=== PATIENT | male | born 1980 | race Caucasian/White ===

== ENCOUNTER 2017-06-26 22:12 | Emergency (ER) | payer SELFPAY, BC | END 2017-06-26 23:46 | disposition left against medical advice (07) | LOC: M ED 22:12 | DX: Z53.21 Procedure and treatment not carried out due to patient leaving prior to being seen by health care provider (principal) ==

== ENCOUNTER 2020-09-03 08:01 | Inpatient (IN) | payer MEDICAID, OTHER, SELFPAY ==
[~2020-09-03] VITALS: Ht 165.1 cm; Wt 109.1 kg
[~2020-09-03 08:01] MED LIST: CLON0.5T2; FLUO20CA22 PO; HYDR-3363; LATU80TA; LISIPOW; METF750T36 PO; RISP-9
[2020-09-03] MEDS ORDERED: LISI20TA35 PO (08:13)
[2020-09-03] MEDS ORDERED: CLON1TAB8 PO (08:13)
[2020-09-03] MEDS ORDERED: LATU40TA PO (08:13)
[2020-09-03] MEDS ORDERED: STEG5TAB PO (08:13)
[2020-09-03] MEDS ORDERED: OXCA300T14 PO (08:13)
[2020-09-03] MEDS ORDERED: ROSU10TA6 PO (08:13)
[2020-09-03] MEDS ORDERED: RISP-8 PO (08:13)
[2020-09-03 08:47] LABS: HEMATOCRIT 47.5 % (42.0-52.0); MEAN CORPUSCULAR HEMOGLOBIN 29.3 pg (27.0-33.0); MEAN CORPUSCULAR HGB CONC 33.7 g/dl (32.0-36.5); MEAN CORPUSCULAR VOLUME 86.8 fl (80.0-96.0); PLATELET COUNT, AUTOMATED 253 10^3/uL (150-450); RED BLOOD COUNT 5.47 10^6/uL (4.30-6.10); WHITE BLOOD COUNT 9.1 10^3/uL (4.0-10.0)
[2020-09-03 09:11] LABS: AMPHETAMINES LEVEL URINE NEGATIVE (NEGATIVE); BARBITURATES URINE NEGATIVE (NEGATIVE); BENZODIAZEPINES URINE NEGATIVE (NEGATIVE); CANNABINOIDS URINE NEGATIVE (NEGATIVE); COCAINE METABOLITE URINE NEGATIVE (NEGATIVE); METHADONE URINE NEGATIVE (NEGATIVE); OPIATES URINE NEGATIVE (NEGATIVE); PHENCYCLIDINE URINE NEGATIVE (NEGATIVE)
[2020-09-03 09:25] LABS: ACETAMINOPHEN LEVEL < 2.0 UG/ML (10.0-30.0); ALBUMIN 4.4 GM/DL (3.2-5.2); ALT/SGPT 39 U/L (12-78); BILIRUBIN,DIRECT 0.1 MG/DL (0.0-0.2); BILIRUBIN,TOTAL 0.5 MG/DL (0.2-1.0); BLOOD UREA NITROGEN 19 MG/DL (7-18); CALCIUM LEVEL 9.5 MG/DL (8.5-10.1); CARBON DIOXIDE LEVEL 22 MEQ/L (21-32); CHLORIDE LEVEL 102 MEQ/L (98-107); CREATININE FOR GFR 1.17 MG/DL (0.70-1.30); ETHYL ALCOHOL (ETHANOL) < 0.003 % (0.000-0.010); GLOMERULAR FILTRATION RATE > 60.0 (>60); GLUCOSE, FASTING 258 MG/DL (70-100); POTASSIUM SERUM 3.8 MEQ/L (3.5-5.1); SALICYLATE LEVEL < 1.7 MG/DL (5.0-30.0); SODIUM LEVEL 135 MEQ/L (136-145); TOTAL PROTEIN 7.4 GM/DL (6.4-8.2)
[2020-09-03 15:46] LABS: RSV AMPLIFICATION NEGATIVE (NEGATIVE)
[2020-09-03] MEDS ORDERED: ACETAMINOPHEN TAB 650MG DOSE (2X325MG) PO PRN (16:05)
[2020-09-03] MEDS ORDERED: traZODone 50 MG TAB PO PRN (16:05)
[2020-09-03] MEDS ORDERED: MAALOX 30 ML SUSP *UDC PO PRN (16:05)
[2020-09-03] MEDS ORDERED: MOM 30ML SUSPENSION UDC PO PRN (16:05)
[2020-09-03] MEDS ORDERED: RISP-9 PO (16:17)
[2020-09-03] MEDS ORDERED: CHOL50002 PO (16:17)
[2020-09-03] MEDS ORDERED: VITMTA PO (16:17)
[2020-09-03 20:15] VITALS: BP 137/85
[2020-09-03] MEDS ORDERED: risperiDONE 2 MG TAB PO SCH (21:50)
[2020-09-03] MEDS ORDERED: hydroCHLOROthiazide 12.5 MG CAPSULE PO SCH (21:50)
[2020-09-03] MEDS: metFORMIN XR 750 MG TAB PO SCH (22:45)
[2020-09-03] MEDS: OXcarbazepine 300 MG TAB PO SCH (22:46)
[2020-09-03] MEDS: clonazePAM 1 MG TAB PO SCH (22:46)
[2020-09-04 06:52] VITALS: BP 148/79
[2020-09-04] MEDS ORDERED: FLUoxetine 20 MG CAP PO SCH (09:00)
[2020-09-04] MEDS: OXcarbazepine 300 MG TAB PO SCH ×2 (09:17→21:05)
[2020-09-04] MEDS: clonazePAM 1 MG TAB PO SCH ×2 (09:17→21:05)
[2020-09-04] MEDS: ROSUVASTATIN 10 MG TAB (CRESTOR) PO SCH (09:17)
[2020-09-04] MEDS: MULTIVITAMINS/MINERALS THERAP 1 TAB PO SCH (09:17)
[2020-09-04] MEDS: VITAMIN D 1,000 INTERNATIONAL UNITS TABLET PO SCH (09:18)
[2020-09-04] MEDS: LURASIDONE HCL 40 MG TAB (LATUDA) PO SCH (09:18)
--- NOTE | 2020-09-04 12:15 | MHHPEPDOC ---
General Date Of Admission: Sep 03, 2020 Legal Status: 9.39 Chief Complaint I been feeling stressed, anxious and depressed also feeling irritable and hatfield, and yesterday was thinking about cutting my wrist ". History of Present Illness HISTORY OF THE PRESENT ILLNESS: Patient is a 40 -year-old , male, who [has a long history of psychiatric treatment as an outpatient for the past 20 years, but reports no previous inpatient treatment. Patient was brought the emergency room by his mother and fianc due to 10 day episode of increasing depression, irritability and recent episode of suicidal thoughts by cutting his wrist with a razor. Patient stated that he hasn't been in treatment for auditory and visual hallucination and mood swings and has been taking combination of medications. He stated that he was doing okay with the ongoing treatment and never had inpatient treatment. 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 He reported that he has been feeling anxious in the morning with the thoughts of going to work and at times feeling emotional and irritable for no reasons with his family. Yesterday morning, he was in the bathroom getting ready for work, but had thoughts of cutting his wrist with a razor and got very scared and asked to his fiance to bring him to the emergency room. He denies any substance abuse issues. He claims that he is been fully compliant with these medications and denies any other stressors. He has been engaged to his fianc for a year and reports good relationship and also her mother is very supportive. He is denying any command hallucination and denies any increased paranoid thoughts.]. Psychiatric Review of Systems Depression (2 or more weeks): depressed mood, difficulty concentrating, suicidal thoughts, other (irritableand hatfield) Carmencita (4 or more days of): denies Psychosis: auditory hallucination, visual hallucination, paranoia PTSD: denies Anxiety: situational anxiety, stressor related anxiety, other (job related anxiety) Past Psychiatric History Previous Psychiatric Diagnosis: .schizophrenia schizoaffective disorder Previous Psychiatric Admissions: .never been hospitalized Suicide Attempts: . No history of any suicide attempt Psychiatric Follow-up: . Been in active treatment at [facility] Psychiatric medications: . Been taking risperidone Latuda Prozac and Trileptal Past Medical History Medical Problems Has diabetes, hypertension and hypercholesterolemia Head Injury: No Seizures: No Hospitalizations: Yes Surgeries: No Family Medical/Psychiatric HX Medical Problems Noncontributory Psychiatric Disorders: No Addiction: No Suicide Attemps/Completions: No Addiction History denies Social History Childhood: . Unremarkable childhood. His father had PTSD and his mother had some anxiety issues, but no major psychiatric history Abuse/Trauma:.no history of abuse Current Living Situation: [Lives with her fiblessing and the her mother]. Education: [Reports that he had a bachelor's degree in psychology from the [employer]]. Employment: [, Working as a Dental Treatment Coordinator]. Social Support: [Family]. Legal: Denies any legal history. Marital: He is engaged to get , no children . Mental Status Examination General Appearance: appears stated age Build: average Demeanor: average Eye Contact: average Activity: average Behavior: cooperative Speech: clear, slow, low in volume Mood: depressed, anxious, irritable Mood Recent episodes of increasing anxiety, irritability and feeling hatfield Thought Process: logical/linear, depressed Thought Content (Delusions): denies SI, HI, AVH, other (used to have visions of ghosts and dark figures and also past. Delusional idea of being abducted by aliens) Thought Content (Other): preoccupied Thought Content (Aggressive): none reported Perception (Hallucinations): auditory, visual, other (. Denies any current active hallucinations) Perception (Other): none reported Cognition (Impairment of): none reported Cognition(Intelligence Est.): average Oriented: Awake, Alert, Oriented times three Diagnoses Schizoaffective disorder A-FIB/CHADSVASC A-FIB History Current/History of A-Fib/PAF?: No Current PO Anticoag Therapy: No Age/Risk Factor Scoring CHADSVASC: CHADSVASC Response (Comments) Value Gender Risk Factor Male 0 Hx of CHF No 0 Hx of HTN Yes 1 Hx of Stroke/TIA/or VTE No 0 Hx of Diabetes Yes 1 Hx of Vascular Disease No 0 Total 2 Treatment Treatment ordered: NONE Assessment Long history of schizoaffective disorder who is in active treatment. He does not appear to be acutely psychotic and denies any command hallucination, but reports increased the depression with the job related stress. He admits to vague suicidal thoughts but denies any clear intent or plan, and able to contract for safety. He needs further stabilization with the medication adjustment and supportive therapy Initial Treatment Plan 1. Patient was admitted on a 9.39 status. 2. Complete history was obtained. 3. With patients permission, family will be contacted and database will be expanded. 4. Patients medication regimen will be reviewed and changed accordingly. 5. Patient will be provided with protected environment. 6. Patient will be treated with individual, group, and milieu therapies. 7. Patient will receive supportive psych-education. 8. Discharge planning will commence immediately. 9. Outpatient follow-up treatment will be strongly recommended. 10. The initial treatment plan will focus initially on: * Depression. * Risk for suicide. ESTIMATED LENGTH OF STAY: 5-7 DAYS. TIME SPENT COUNSELING AND COORDINATING INITIAL CARE: 45 minutes. Tobacco Cessation Screen If Patient is a Smoker Nonsmoker Complete/Results docum. Vital Signs Vital Signs Date Time Temp Pulse Resp B/P (MAP) Pulse Ox O2 Delivery O2 Flow Rate FiO2 09/04/20 06:52 97.6 111 16 148/79 (102) 96 Room Air Laboratory Data 24H Labs Laboratory Tests 2 09/03/20 14:45: Coronavirus (COVID-19)(PCR) NEGATIVE, Influenza Type A (RT-PCR) NEGATIVE, Influenza Type B (RT-PCR) NEGATIVE, Respiratory Syncytial Virus (PCR) NEGATIVE Medications Scheduled Cholecalciferol (Vitamin D3) (Vitamin D3) 125 Mcg Capsule, 5,000 UNITS PO DAILY, (Reported) Clonazepam (Clonazepam) 1 Mg Tablet, 1 MG PO BID, (Reported) Ertugliflozin Pidolate (Steglatro) 5 Mg Tablet, 5 MG PO DAILY, (Reported) Fluoxetine Hcl (Fluoxetine HCl) 20 Mg Cap, 20 MG PO DAILY, (Reported) Lisinopril/Hydrochlorothiazide (Lisinopril-Hctz 20-12.5 mg Tab) 1 Each Tablet, 1 TAB PO QHS, (Reported) Lurasidone Hydrochloride (Latuda) 40 Mg Tablet, 40 MG PO DAILY, (Reported) Metformin HCl (Metformin HCl ER) 750 Mg Tab, 750 MG PO BID, (Reported) Multivitamins (Thera M Plus Tablet) 1 Each Tablet, 1 TAB PO DAILY, (Reported) Oxcarbazepine (Oxcarbazepine) 300 Mg Tablet, 600 MG PO BID, (Reported) Risperidone (Risperidone) 2 Mg Tablet, 2 MG PO QHS, (Reported) Rosuvastatin Calcium (Rosuvastatin Calcium) 10 Mg Tablet, 10 MG PO DAILY, ( Reported) Allergies Coded Allergies: Sulfa (Sulfonamide Antibiotics) (Verified Allergy, Intermediate, HIVES, 09/03/20) PLACIDO MAHMOOD M.D. Sep 04, 2020 12:14
--- NOTE | 2020-09-04 12:54 | HPEPDOC ---
General Date of Admission Sep 03, 2020 at 16:03 Date of Service: Sep 04, 2020 Attending Physician: JAMES HERNANDEZ MD Chief Complaint The patient is a 40-year-old male admitted with a reason for visit of Depressive Do Nos. History of Present Illness 40 yo M with a history of DM, HTN, HLD, obesity, schizophrenia who presented to the ED with worsening depression with suicidal thoughts for days with a report of some auditory hallucinations though he does not remember their command at this time. He reports recent stress from his current job and has a self reported history of schizophrenia with no prior history of suicidal attempts. He denies recent physical illness, fever, chills, nausea, emesis, abdominal pain, chest schulte, palpitations. He is now admitted to the [facility] for evaluation and treatment and medicine is consulted for medical evaluation. Home Medications Scheduled Cholecalciferol (Vitamin D3) (Vitamin D3) 125 Mcg Capsule, 5,000 UNITS PO DAILY, (Reported) Clonazepam (Clonazepam) 1 Mg Tablet, 1 MG PO BID, (Reported) Ertugliflozin Pidolate (Steglatro) 5 Mg Tablet, 5 MG PO DAILY, (Reported) Fluoxetine Hcl (Fluoxetine HCl) 20 Mg Cap, 20 MG PO DAILY, (Reported) Lisinopril/Hydrochlorothiazide (Lisinopril-Hctz 20-12.5 mg Tab) 1 Each Tablet, 1 TAB PO QHS, (Reported) Lurasidone Hydrochloride (Latuda) 40 Mg Tablet, 40 MG PO DAILY, (Reported) Metformin HCl (Metformin HCl ER) 750 Mg Tab, 750 MG PO BID, (Reported) Multivitamins (Thera M Plus Tablet) 1 Each Tablet, 1 TAB PO DAILY, (Reported) Oxcarbazepine (Oxcarbazepine) 300 Mg Tablet, 600 MG PO BID, (Reported) Risperidone (Risperidone) 2 Mg Tablet, 2 MG PO QHS, (Reported) Rosuvastatin Calcium (Rosuvastatin Calcium) 10 Mg Tablet, 10 MG PO DAILY, (Reported) Allergies Coded Allergies: Sulfa (Sulfonamide Antibiotics) (Verified Allergy, Intermediate, HIVES, 09/03/20) Past Medical History Medical History DM HTN HLD Vit D deficiency Schizophrenia Surgical History None Family History Significant Family History: No pertinent family hx Social History * Smoker: Denies Alcohol: Denies Drugs: denies Recent Travel/Sick Contacts: Denies: Recent travel, Recent sick contacts Psychosocial History: Schizophrenia, Suicidal thoughts A-FIB/CHADSVASC A-FIB History Current/History of A-Fib/PAF?: No Current PO Anticoag Therapy: No Age/Risk Factor Scoring CHADSVASC: CHADSVASC Response (Comments) Value Age Risk Factor Age < 65 years old 0 Gender Risk Factor Male 0 Hx of CHF No 0 Hx of HTN Yes 1 Hx of Stroke/TIA/or VTE No 0 Hx of Diabetes Yes 1 Hx of Vascular Disease No 0 Total 2 Treatment Treatment ordered: NONE Reason Anticoagulant not given: Not indicated/[id number] Review of Systems Constitutional: Denies: Chills, Fever, Night Sweats Eyes: Denies: Pain, Vision change ENT: Denies: Head Aches, Ear Pain, Dysphagia Skin: Denies: Rash, Lesions, Breakdown Pulmonary: Denies: Dyspnea, Cough Cardiovascular: Denies: Chest Pain, Palpitations, Orthopnea, Paroxysmal Noc. Dyspnea, Lt Headedness Gastrointestinal: Denies: Nausea, Vomiting, Abdominal Pain, Diarrhea Genitourinary: Denies: Dysuria, Frequency, Incontinence, Retention Hematologic: Denies: Bruising, Bleeding Excessively Endocrine: Denies: Polydipsia, Polyphagia, Polyuria, Heat Intolerance, Cold Intolerance, Other Endocrine Sx Musculoskeletal: Denies: Neck Pain, Back Pain, Joint Pain, Muscle Pain, Spasms Neurological: Denies: Weakness, Numbness, Change in speech, Confusion Psych: Reports: Anxiety, Depression, Thoughts of Self Harm Physical Examination General Exam: Positive: Alert, No Acute Distress Eye Exam: Positive: PERRLA, Conjunctiva & lids normal, EOMI; Negative: Sclera icteric ENT Exam: Positive: Atraumatic, Mucous membr. moist/pink, Pharynx Normal Neck Exam: Positive: Supple; Negative: JVD, thyromegaly Chest Exam: Positive: Clear to auscultation, Normal air movement Heart Exam: Positive: Rate Normal, Regular Rhythm, Normal S1, Normal S2; Negative: Murmurs, Rubs Abdomen Exam: Positive: Normal bowel sounds, Soft; Negative: Tenderness, Hepatospenomegaly Extremity Exam: Positive: Normal pulses; Negative: Clubbing, Cyanosis, Edema Skin Exam: Positive: Nl turgor and temperature; Negative: Breakdown, Lesion Neuro Exam: Positive: Normal Gait, Normal Speech, Cranial Nerves 3-12 NL, Reflexes 2+ Psych Exam: Positive: Oriented x 3 Vital Signs Vital Signs Date Time Temp Pulse Resp B/P (MAP) Pulse Ox O2 Delivery O2 Flow Rate FiO2 09/04/20 12:04 Room Air 09/04/20 06:52 97.6 111 16 148/79 (102) 96 Laboratory Data Labs 24H Laboratory Tests 2 09/03/20 14:45: Coronavirus (COVID-19)(PCR) NEGATIVE, Influenza Type A (RT-PCR) NEGATIVE, Influenza Type B (RT-PCR) NEGATIVE, Respiratory Syncytial Virus (PCR) NEGATIVE Assessment/Plan 40 yo M with a history for DM, HTN, HLD and self reported history of schizophrenia who is admitted to the [facility] for worsening depression and suicidal ideation. Depression with suicidal ideation, w/ a history of schizophrenia: -Plan per primary psych team DM: -continue metformin -SGLT2 --> ordered as patient's own med and patient will have his fiance bring the medication. -consistent carb diet HTN: -continue QHS lisinopril 20mg -change 12.5 HCTZ to daily from QHS as he is reporting nocturia HLD: -continue home rosuvastatin 10mg QD DVT ppx: ambulatory, low risk. Plan / VTE VTE Prophylaxis Ordered?: No VTE Exclusion Mechanical Proph: Absent Response to Tx VTE Exclusion Pharmacological: At Low Risk for VTE JAMES HERNANDEZ MD Sep 04, 2020 12:26
[2020-09-04] MEDS: hydroCHLOROthiazide 12.5 MG CAPSULE PO SCH (14:03)
[2020-09-04] MEDS: metFORMIN XR 750 MG TAB PO SCH ×2 (14:03→21:05)
[2020-09-04 18:44] VITALS: BP 148/90
[2020-09-04] MEDS: risperiDONE 3 MG TAB PO SCH (21:06)
[2020-09-05] MEDS ORDERED: UNRESOLVED PATIENT OWN MED ORDER XX SCH (00:01)
[2020-09-05 06:29] VITALS: BP 130/58
[2020-09-05] MEDS: ERTUGLIFLOZIN PO SCH (08:57)
[2020-09-05] MEDS: VITAMIN D 1,000 INTERNATIONAL UNITS TABLET PO SCH (08:58)
[2020-09-05] MEDS: hydroCHLOROthiazide 12.5 MG CAPSULE PO SCH (08:58)
[2020-09-05] MEDS: clonazePAM 1 MG TAB PO SCH ×2 (08:58→20:38)
[2020-09-05] MEDS: FLUoxetine 10 MG CAP PO SCH (08:59)
[2020-09-05] MEDS: metFORMIN XR 750 MG TAB PO SCH ×2 (08:59→20:39)
[2020-09-05] MEDS: ROSUVASTATIN 10 MG TAB (CRESTOR) PO SCH (09:00)
[2020-09-05] MEDS: MULTIVITAMINS/MINERALS THERAP 1 TAB PO SCH (09:00)
[2020-09-05] MEDS: OXcarbazepine 300 MG TAB PO SCH ×2 (09:00→20:39)
[2020-09-05] MEDS: LURASIDONE HCL 40 MG TAB (LATUDA) PO SCH (09:01)
--- NOTE | 2020-09-05 10:17 | MHIPNPDOC ---
[facility] Progress Note Progress Note DATE OF SERVICE: 09/05/20 The patient is cooperated with the medication change and took a increase the risperidone and the Prozac and reports no complain of side effect. He is asking if he needs more to stabilize, but he was told that is already taking Trileptal which is a good mood stabilizer and he accepts that. He has no new complaints and reports that he is not as anxious and he is not as depressed about his situation and denies any more suicidal plan or intent and indicates that he would like to go home soon. He is however showing no significant change in his mental status appears to be quite preoccupied and withdrawn and was explained that he needs further stabilization. HISTORY: . VITAL SIGNS: See below. NEW TEST RESULTS: . CURRENT MEDICATIONS: See below. MENTAL STATUS EXAMINATION: Patient is a 40-year old male, who is , cooperative. Speech: Is , coherent and relevant. Language skills are good. Thought processes including: Relevant answers. Thought content: , Somewhat minimizing and evasive but reports that he is not as preoccupied with his job stress. Abstract reasoning, and computation: fair. Description of associations: Organize. Description of abnormal or psychotic thoughts: Denies any active or hallucination and denies any active suicidal thoughts. Judgment: fair. Insight: [ fair. Orientation: Oriented . Recent and remote memory: Unimpaired. Attention span and concentration: . Language: . Fund of knowledge: . Mood: , Depressed and preoccupied. Affect: , Appropriate. DIAGNOSES: 1. . Schizoaffective disorder 2. . 3. . ASSESSMENT: Cooperating with the medicine and denies any active suicidal thoughts MANAGEMENT PLAN: . stabilization with his medication changes and supportive therapy. TIME SPENT: 20 minutes. Vital Signs Vital Signs Date Time Temp Pulse Resp B/P (MAP) Pulse Ox O2 Delivery O2 Flow Rate FiO2 09/05/20 06:29 97.5 93 18 130/58 (82) 100 Room Air Current Medications Current Medications Medications (Trade) Dose Ordered Sig/Ria Route PRN Reason Start Time Stop Time Status Last Admin Dose Admin Acetaminophen (Tylenol Tab) 650 mg Q6HP PRN PO HEADACHE or MILD DISCOMFORT 09/03/20 16:05 Al Hydrox/Mg Hydrox/Simethicone (Mylanta) 30 ml Q4HP PRN PO HEARTBURN/INDIGESTION 09/03/20 16:05 Clonazepam (KlonoPIN) 1 mg BID PO 09/03/20 21:50 09/05/20 08:58 Fluoxetine HCl (PROzac) 20 mg DAILY PO 09/04/20 09:00 09/04/20 11:46 DC 09/04/20 09:17 Fluoxetine HCl (PROzac) 30 mg DAILY PO 09/05/20 09:00 09/05/20 08:59 Home Med (Med Rec Complete!) ASDIRECTED XX 09/03/20 16:20 09/03/20 16:20 DC Hydrochlorothiazide (Hydrodiuril) 12.5 mg DAILY PO 09/04/20 09:00 09/05/20 08:58 Hydrochlorothiazide (Hydrodiuril) 12.5 mg QHS PO 09/03/20 21:50 09/04/20 12:52 DC Lisinopril (Prinivil) 20 mg QHS PO 09/03/20 21:50 09/04/20 21:05 Lurasidone HCl (Latuda) 40 mg DAILY PO 09/04/20 09:00 09/05/20 09:01 Magnesium Hydroxide (Milk Of Magnesia) 30 ml DAILYPRN PRN PO CONSTIPATION 09/03/20 16:05 Metformin HCl (Glucophage Xr) 750 mg BID PO 09/03/20 21:50 09/05/20 08:59 Miscellaneous (Unresolved Patient Own Med Order) SEE LABEL COMMENTS UNRESOLVED XX 09/05/20 00:01 09/04/20 20:37 DC Multivitamins (Theragram-M) 1 tab DAILY PO 09/04/20 09:00 09/05/20 09:00 Oxcarbazepine (Trileptal) 600 mg BID PO 09/03/20 21:50 09/05/20 09:00 Patient Own Medication (Patient'S Own Med) ERTUGLIFLOZIN 5MG TABLET (Stegla... DAILY PO 09/05/20 09:00 09/05/20 08:57 Risperidone (RisperDAL) 2 mg QHS PO 09/03/20 21:50 09/04/20 11:46 DC 09/03/20 22:46 Risperidone (RisperDAL) 3 mg QHS PO 09/04/20 21:00 09/04/20 21:06 Rosuvastatin Calcium (Crestor) 10 mg DAILY PO 09/04/20 09:00 09/05/20 09:00 Trazodone HCl (Desyrel) 50 mg QHSP PRN PO INSOMNIA 09/03/20 16:05 Vitamin D (Vitamin D) 5,000 units DAILY PO 09/04/20 09:00 09/05/20 08:58 Allergies Coded Allergies: Sulfa (Sulfonamide Antibiotics) (Verified Allergy, Intermediate, HIVES, 09/03/20) PLACIDO MAHMOOD M.D. Sep 05, 2020 10:17
[2020-09-05 17:45] VITALS: BP 144/81
[2020-09-05] MEDS: risperiDONE 3 MG TAB PO SCH (20:39)
[2020-09-06 06:35] VITALS: BP 129/56
[2020-09-06] MEDS: ERTUGLIFLOZIN PO SCH (08:09)
[2020-09-06] MEDS: MULTIVITAMINS/MINERALS THERAP 1 TAB PO SCH (08:09)
[2020-09-06] MEDS: VITAMIN D 1,000 INTERNATIONAL UNITS TABLET PO SCH (08:10)
[2020-09-06] MEDS: hydroCHLOROthiazide 12.5 MG CAPSULE PO SCH (08:10)
[2020-09-06] MEDS: LURASIDONE HCL 40 MG TAB (LATUDA) PO SCH (08:10)
[2020-09-06] MEDS: metFORMIN XR 750 MG TAB PO SCH ×2 (08:10→21:26)
[2020-09-06] MEDS: OXcarbazepine 300 MG TAB PO SCH ×2 (08:10→21:26)
[2020-09-06] MEDS: ROSUVASTATIN 10 MG TAB (CRESTOR) PO SCH (08:10)
[2020-09-06] MEDS: clonazePAM 1 MG TAB PO SCH ×2 (08:10→21:26)
[2020-09-06] MEDS: FLUoxetine 10 MG CAP PO SCH (08:10)
--- NOTE | 2020-09-06 11:50 | MHIPNPDOC ---
[facility] Progress Note Progress Note DATE OF SERVICE: 09/06/20 The patient is tolerating increased the Prozac and risperidone without any complaint of side effect. He is a little anxious and stated that he misses his fiance and will like to go home soon, but admits that he has been getting increasingly stressed with his new job and was having serious suicidal thoughts. He is currently denying any more, intent or plan and is willing to cooperate with the treatment. She appears somewhat regressed and childish but his behavior is in control and denies any command hallucination and willing to cooperate with treatment. HISTORY: . VITAL SIGNS: See below. NEW TEST RESULTS: . CURRENT MEDICATIONS: See below. MENTAL STATUS EXAMINATION: Patient is a 40-year old male, who is moderately anxious . Speech: Is rational coherent, but not productive . Language skills are fair. Thought processes including: Relevant. Thought content: , Not very productive, but admits to increasing difficulty with the new job. Abstract reasoning, and computation: fair. Description of associations: , Organized. Description of abnormal or psychotic thoughts: Denies any command hallucination or delusional thinking. Judgment: poor. Insight: fair.. Orientation: , Oriented, unimpaired. Recent and remote memory: . Attention span and concentration: . Language: . Fund of knowledge: . Mood: , Anxious, depressed. Affect: Somewhat blunted. DIAGNOSES: 1. . Schizoaffective disorder 2. . 3. . ASSESSMENT: Remains moderately anxious and feeling unsafe but denies any active suicidal thoughts MANAGEMENT PLAN: Continued supportive therapy and medications. TIME SPENT: 20 minutes. Vital Signs Vital Signs Date Time Temp Pulse Resp B/P (MAP) Pulse Ox O2 Delivery O2 Flow Rate FiO2 09/06/20 06:35 96.8 77 18 129/56 (80) 95 Room Air Current Medications Current Medications Medications (Trade) Dose Ordered Sig/Ria Route PRN Reason Start Time Stop Time Status Last Admin Dose Admin Acetaminophen (Tylenol Tab) 650 mg Q6HP PRN PO HEADACHE or MILD DISCOMFORT 09/03/20 16:05 Al Hydrox/Mg Hydrox/Simethicone (Mylanta) 30 ml Q4HP PRN PO HEARTBURN/INDIGESTION 09/03/20 16:05 Clonazepam (KlonoPIN) 1 mg BID PO 09/03/20 21:50 09/06/20 08:10 Fluoxetine HCl (PROzac) 20 mg DAILY PO 09/04/20 09:00 09/04/20 11:46 DC 09/04/20 09:17 Fluoxetine HCl (PROzac) 30 mg DAILY PO 09/05/20 09:00 09/06/20 08:10 Home Med (Med Rec Complete!) ASDIRECTED XX 09/03/20 16:20 09/03/20 16:20 DC Hydrochlorothiazide (Hydrodiuril) 12.5 mg DAILY PO 09/04/20 09:00 09/06/20 08:10 Hydrochlorothiazide (Hydrodiuril) 12.5 mg QHS PO 09/03/20 21:50 09/04/20 12:52 DC Lisinopril (Prinivil) 20 mg QHS PO 09/03/20 21:50 09/05/20 20:39 Lurasidone HCl (Latuda) 40 mg DAILY PO 09/04/20 09:00 09/06/20 08:10 Magnesium Hydroxide (Milk Of Magnesia) 30 ml DAILYPRN PRN PO CONSTIPATION 09/03/20 16:05 Metformin HCl (Glucophage Xr) 750 mg BID PO 09/03/20 21:50 09/06/20 08:10 Miscellaneous (Unresolved Patient Own Med Order) SEE LABEL COMMENTS UNRESOLVED XX 09/05/20 00:01 09/04/20 20:37 DC Multivitamins (Theragram-M) 1 tab DAILY PO 09/04/20 09:00 09/06/20 08:09 Oxcarbazepine (Trileptal) 600 mg BID PO 09/03/20 21:50 09/06/20 08:10 Patient Own Medication (Patient'S Own Med) ERTUGLIFLOZIN 5MG TABLET (Stegla... DAILY PO 09/05/20 09:00 09/06/20 08:09 Risperidone (RisperDAL) 2 mg QHS PO 09/03/20 21:50 09/04/20 11:46 DC 09/03/20 22:46 Risperidone (RisperDAL) 3 mg QHS PO 09/04/20 21:00 09/05/20 20:39 Rosuvastatin Calcium (Crestor) 10 mg DAILY PO 09/04/20 09:00 09/06/20 08:10 Trazodone HCl (Desyrel) 50 mg QHSP PRN PO INSOMNIA 09/03/20 16:05 Vitamin D (Vitamin D) 5,000 units DAILY PO 09/04/20 09:00 09/06/20 08:10 Allergies Coded Allergies: Sulfa (Sulfonamide Antibiotics) (Verified Allergy, Intermediate, HIVES, 09/03/20) PLACIDO MAHMOOD M.D. Sep 06, 2020 11:50
[2020-09-06 18:04] VITALS: BP 147/86
[2020-09-06] MEDS: risperiDONE 3 MG TAB PO SCH (21:26)
[2020-09-07 06:55] VITALS: BP 119/66
[2020-09-07] MEDS: ERTUGLIFLOZIN PO SCH (09:16)
[2020-09-07] MEDS: hydroCHLOROthiazide 12.5 MG CAPSULE PO SCH (09:16)
[2020-09-07] MEDS: metFORMIN XR 750 MG TAB PO SCH ×2 (09:16→20:57)
[2020-09-07] MEDS: ROSUVASTATIN 10 MG TAB (CRESTOR) PO SCH (09:16)
[2020-09-07] MEDS: OXcarbazepine 300 MG TAB PO SCH ×2 (09:17→20:57)
[2020-09-07] MEDS: FLUoxetine 10 MG CAP PO SCH (09:17)
[2020-09-07] MEDS: clonazePAM 1 MG TAB PO SCH ×2 (09:17→20:57)
[2020-09-07] MEDS: MULTIVITAMINS/MINERALS THERAP 1 TAB PO SCH (09:17)
[2020-09-07] MEDS: VITAMIN D 1,000 INTERNATIONAL UNITS TABLET PO SCH (09:17)
[2020-09-07] MEDS: LURASIDONE HCL 40 MG TAB (LATUDA) PO SCH (09:17)
--- NOTE | 2020-09-07 14:46 | MHIPNPDOC ---
[facility] Progress Note Progress Note DATE OF SERVICE: 09/07/20 HISTORY: As per Dr. Orellana: "The patient is tolerating increased the Prozac and risperidone without any complaint of side effect. He is a little anxious and stated that he misses his fiance and will like to go home soon, but admits that he has been getting increasingly stressed with his new job and was having serious suicidal thoughts. He is currently denying any more, intent or plan and is willing to cooperate with the treatment. She appears somewhat regressed and childish but his behavior is in control and denies any command hallucination and willing to cooperate with treatment." VITAL SIGNS: See below. NEW TEST RESULTS: . CURRENT MEDICATIONS: See below. MENTAL STATUS EXAMINATION: Patient is a 40-year old male, who presents to the office wearing hospital scrubs, he is calm, cooperative, obese, with good eye contact Speech: Is normal in r/t/v, not very spontaneous. Language skills are fair. Thought processes including: Relevant. Thought content: Denies feeling suicidal or homicidal, denies paranoid thoughts, denies grandiose or bizarre thoughts today but still reports anxious thoughts. Abstract reasoning, and computation: fair. Description of associations: Not loose. Description of abnormal or psychotic thoughts: Denies TAV hallucinations, denies thought delusions, he is not responding to internal stimuli Judgment: improving. Insight: fair. Orientation: Oriented, unimpaired. Recent and remote memory: fair Attention span and concentration: not easily distracted. Language: no gross abnormalities observed. Fund of knowledge: average Mood: Anxious Affect: A little restricted DIAGNOSES: 1. . Schizoaffective disorder ASSESSMENT: Patient reports feeling anxious, mostly in the mornings because at times the Unit can be noisy as a result of peers been agitated. Other than that he reports an improvement since he was admitted, he feels less anxious, less depressed, he denies SI/HI, he's not in danger to self or others at this time. Ordered lipid profile and a repeat of his TSH because this last one was elevated upon admission. MANAGEMENT PLAN: Continued supportive therapy and medications. TIME SPENT: 20 minutes. Vital Signs Vital Signs Date Time Temp Pulse Resp B/P (MAP) Pulse Ox O2 Delivery O2 Flow Rate FiO2 09/07/20 08:12 Room Air 09/07/20 06:55 98.0 84 20 119/66 (83) 98 Laboratory Data 24H Labs Laboratory Tests 2 09/06/20 21:31: Bedside Glucose (Misc Panel) 141H Current Medications Current Medications Medications (Trade) Dose Ordered Sig/Ria Route PRN Reason Start Time Stop Time Status Last Admin Dose Admin Acetaminophen (Tylenol Tab) 650 mg Q6HP PRN PO HEADACHE or MILD DISCOMFORT 09/03/20 16:05 Al Hydrox/Mg Hydrox/Simethicone (Mylanta) 30 ml Q4HP PRN PO HEARTBURN/INDIGESTION 09/03/20 16:05 09/06/20 14:55 Clonazepam (KlonoPIN) 1 mg BID PO 09/03/20 21:50 09/07/20 09:17 Fluoxetine HCl (PROzac) 20 mg DAILY PO 09/04/20 09:00 09/04/20 11:46 DC 09/04/20 09:17 Fluoxetine HCl (PROzac) 30 mg DAILY PO 09/05/20 09:00 09/07/20 09:17 Home Med (Med Rec Complete!) ASDIRECTED XX 09/03/20 16:20 09/03/20 16:20 DC Hydrochlorothiazide (Hydrodiuril) 12.5 mg DAILY PO 09/04/20 09:00 09/07/20 09:16 Hydrochlorothiazide (Hydrodiuril) 12.5 mg QHS PO 09/03/20 21:50 09/04/20 12:52 DC Lisinopril (Prinivil) 20 mg QHS PO 09/03/20 21:50 09/06/20 21:26 Lurasidone HCl (Latuda) 40 mg DAILY PO 09/04/20 09:00 09/07/20 09:17 Magnesium Hydroxide (Milk Of Magnesia) 30 ml DAILYPRN PRN PO CONSTIPATION 09/03/20 16:05 Metformin HCl (Glucophage Xr) 750 mg BID PO 09/03/20 21:50 09/07/20 09:16 Miscellaneous (Unresolved Patient Own Med Order) SEE LABEL COMMENTS UNRESOLVED XX 09/05/20 00:01 09/04/20 20:37 DC Multivitamins (Theragram-M) 1 tab DAILY PO 09/04/20 09:00 09/07/20 09:17 Oxcarbazepine (Trileptal) 600 mg BID PO 09/03/20 21:50 09/07/20 09:17 Patient Own Medication (Patient'S Own Med) ERTUGLIFLOZIN 5MG TABLET (Stegla... DAILY PO 09/05/20 09:00 09/07/20 09:16 Risperidone (RisperDAL) 2 mg QHS PO 09/03/20 21:50 09/04/20 11:46 DC 09/03/20 22:46 Risperidone (RisperDAL) 3 mg QHS PO 09/04/20 21:00 09/06/20 21:26 Rosuvastatin Calcium (Crestor) 10 mg DAILY PO 09/04/20 09:00 09/07/20 09:16 Trazodone HCl (Desyrel) 50 mg QHSP PRN PO INSOMNIA 09/03/20 16:05 Vitamin D (Vitamin D) 5,000 units DAILY PO 09/04/20 09:00 09/07/20 09:17 Allergies Coded Allergies: Sulfa (Sulfonamide Antibiotics) (Verified Allergy, Intermediate, HIVES, 09/03/20) CARI GODFREY MD Sep 07, 2020 14:35
[2020-09-07 16:51] VITALS: BP 143/68
[2020-09-07] MEDS: risperiDONE 3 MG TAB PO SCH (20:57)
[2020-09-08 06:55] VITALS: BP 124/60
[2020-09-08 07:55] LABS: CHOLESTEROL RISK RATIO 4.828 (<5); THYROID STIMULATING HORMONE 4.43 uIU/ML (0.358-3.740)
[2020-09-08] MEDS: hydroCHLOROthiazide 12.5 MG CAPSULE PO SCH (09:19)
[2020-09-08] MEDS: OXcarbazepine 300 MG TAB PO SCH ×2 (09:20→20:48)
[2020-09-08] MEDS: clonazePAM 1 MG TAB PO SCH ×2 (09:20→20:49)
[2020-09-08] MEDS: ROSUVASTATIN 10 MG TAB (CRESTOR) PO SCH (09:21)
[2020-09-08] MEDS: LURASIDONE HCL 40 MG TAB (LATUDA) PO SCH (09:21)
[2020-09-08] MEDS: metFORMIN XR 750 MG TAB PO SCH ×2 (09:21→20:49)
[2020-09-08] MEDS: MULTIVITAMINS/MINERALS THERAP 1 TAB PO SCH (09:22)
[2020-09-08] MEDS: VITAMIN D 1,000 INTERNATIONAL UNITS TABLET PO SCH (09:22)
[2020-09-08] MEDS: FLUoxetine 10 MG CAP PO SCH (09:22)
[2020-09-08] MEDS: ERTUGLIFLOZIN PO SCH (09:23)
[2020-09-08] MEDS: risperiDONE 3 MG TAB PO SCH (20:49)
[2020-09-09] MEDS: MULTIVITAMINS/MINERALS THERAP 1 TAB PO SCH (08:27)
[2020-09-09] MEDS: FLUoxetine 10 MG CAP PO SCH (08:27)
[2020-09-09] MEDS: clonazePAM 1 MG TAB PO SCH ×2 (08:27→20:47)
[2020-09-09] MEDS: metFORMIN XR 750 MG TAB PO SCH ×2 (08:27→20:48)
[2020-09-09] MEDS: LURASIDONE HCL 40 MG TAB (LATUDA) PO SCH (08:28)
[2020-09-09] MEDS: ERTUGLIFLOZIN PO SCH (08:28)
[2020-09-09] MEDS: hydroCHLOROthiazide 12.5 MG CAPSULE PO SCH (08:28)
[2020-09-09] MEDS: OXcarbazepine 300 MG TAB PO SCH ×2 (08:30→20:47)
[2020-09-09] MEDS: VITAMIN D 1,000 INTERNATIONAL UNITS TABLET PO SCH (08:30)
[2020-09-09] MEDS: ROSUVASTATIN 10 MG TAB (CRESTOR) PO SCH (08:30)
--- NOTE | 2020-09-09 09:37 | MHIPNPDOC ---
[facility] Progress Note Progress Note DATE OF SERVICE: 09/09/20 The patient reports that that he has been feeling much better and is not getting any suicidal thoughts anymore. He stated that he was not taking care of himself after he started the new job and was not sleeping enough and probably overextended himself, which could have triggered this episode. He is not feeling as anxious or depressed and not getting any suicidal thoughts and his sleep has improved and not having much anxiety symptoms. He misses his fiance and has been talking to on the phone and wants to be discharged soon. HISTORY: . VITAL SIGNS: See below. NEW TEST RESULTS: . CURRENT MEDICATIONS: See below. MENTAL STATUS EXAMINATION: Patient is a 40-year old male, who is , pleasant and cooperative. Speech: Is rational, coherent. Language skills are good. Thought processes including: Relevant. Thought content: Denies any suicidal thoughts. Abstract reasoning, and computation: Good. Description of associations: Organized . Description of abnormal or psychotic thoughts: Denies any hallucination or paranoia . Judgment: fair. Insight: fair. Orientation: , Well oriented. Recent and remote memory: Unimpaired. Attention span and concentration: . Language: . Fund of knowledge: . Mood: Euthymic. Affect: , Appropriate. DIAGNOSES: 1. . Schizoaffective disorder 2. . 3. . ASSESSMENT:Showing improved mood and maintaining stable behavior MANAGEMENT PLAN: Continue with his current medicine. Possible discharge tomorrow. TIME SPENT: 20 minutes. Vital Signs Vital Signs Date Time Temp Pulse Resp B/P (MAP) Pulse Ox O2 Delivery O2 Flow Rate FiO2 09/08/20 08:25 Room Air 09/08/20 06:55 98.5 90 20 124/60 (81) 95 Current Medications Current Medications Medications (Trade) Dose Ordered Sig/Ria Route PRN Reason Start Time Stop Time Status Last Admin Dose Admin Acetaminophen (Tylenol Tab) 650 mg Q6HP PRN PO HEADACHE or MILD DISCOMFORT 09/03/20 16:05 Al Hydrox/Mg Hydrox/Simethicone (Mylanta) 30 ml Q4HP PRN PO HEARTBURN/INDIGESTION 09/03/20 16:05 09/06/20 14:55 Clonazepam (KlonoPIN) 1 mg BID PO 09/03/20 21:50 09/09/20 08:27 Fluoxetine HCl (PROzac) 20 mg DAILY PO 09/04/20 09:00 09/04/20 11:46 DC 09/04/20 09:17 Fluoxetine HCl (PROzac) 30 mg DAILY PO 09/05/20 09:00 09/09/20 08:27 Home Med (Med Rec Complete!) ASDIRECTED XX 09/03/20 16:20 09/03/20 16:20 DC Hydrochlorothiazide (Hydrodiuril) 12.5 mg DAILY PO 09/04/20 09:00 09/09/20 08:28 Hydrochlorothiazide (Hydrodiuril) 12.5 mg QHS PO 09/03/20 21:50 09/04/20 12:52 DC Lisinopril (Prinivil) 20 mg QHS PO 09/03/20 21:50 09/08/20 20:49 Lurasidone HCl (Latuda) 40 mg DAILY PO 09/04/20 09:00 09/09/20 08:28 Magnesium Hydroxide (Milk Of Magnesia) 30 ml DAILYPRN PRN PO CONSTIPATION 09/03/20 16:05 Metformin HCl (Glucophage Xr) 750 mg BID PO 09/03/20 21:50 09/09/20 08:27 Miscellaneous (Unresolved Patient Own Med Order) SEE LABEL COMMENTS UNRESOLVED XX 09/05/20 00:01 09/04/20 20:37 DC Multivitamins (Theragram-M) 1 tab DAILY PO 09/04/20 09:00 09/09/20 08:27 Oxcarbazepine (Trileptal) 600 mg BID PO 09/03/20 21:50 09/09/20 08:30 Patient Own Medication (Patient'S Own Med) ERTUGLIFLOZIN 5MG TABLET (Stegla... DAILY PO 09/05/20 09:00 09/09/20 08:28 Risperidone (RisperDAL) 2 mg QHS PO 09/03/20 21:50 09/04/20 11:46 DC 09/03/20 22:46 Risperidone (RisperDAL) 3 mg QHS PO 09/04/20 21:00 09/08/20 20:49 Rosuvastatin Calcium (Crestor) 10 mg DAILY PO 09/04/20 09:00 09/09/20 08:30 Trazodone HCl (Desyrel) 50 mg QHSP PRN PO INSOMNIA 09/03/20 16:05 Vitamin D (Vitamin D) 5,000 units DAILY PO 09/04/20 09:00 09/09/20 08:30 Allergies Coded Allergies: Sulfa (Sulfonamide Antibiotics) (Verified Allergy, Intermediate, HIVES, 09/03/20) PLACIDO MAHMOOD M.D. Sep 09, 2020 09:37
[2020-09-09 20:48] VITALS: BP 135/79
[2020-09-09] MEDS: risperiDONE 3 MG TAB PO SCH (20:48)
[2020-09-10 06:45] VITALS: BP 111/57
[2020-09-10] MEDS: MULTIVITAMINS/MINERALS THERAP 1 TAB PO SCH (08:19)
[2020-09-10] MEDS: clonazePAM 1 MG TAB PO SCH (08:20)
[2020-09-10] MEDS: hydroCHLOROthiazide 12.5 MG CAPSULE PO SCH (08:20)
[2020-09-10] MEDS: FLUoxetine 10 MG CAP PO SCH (08:20)
[2020-09-10] MEDS: LURASIDONE HCL 40 MG TAB (LATUDA) PO SCH (08:20)
[2020-09-10] MEDS: metFORMIN XR 750 MG TAB PO SCH (08:20)
[2020-09-10] MEDS: ERTUGLIFLOZIN PO SCH (08:21)
[2020-09-10] MEDS: VITAMIN D 1,000 INTERNATIONAL UNITS TABLET PO SCH (08:23)
[2020-09-10] MEDS: ROSUVASTATIN 10 MG TAB (CRESTOR) PO SCH (08:23)
[2020-09-10] MEDS: OXcarbazepine 300 MG TAB PO SCH (08:23)
[2020-09-10] MEDS ORDERED: FLUO10CA16 PO (08:42)
[2020-09-10] MEDS ORDERED: RISP-10 PO (08:42)
--- NOTE | 2020-09-10 08:50 | MHDSPDOC ---
[facility] Discharge Summary Discharge Summary DATE OF ADMISSION: Sep 03, 2020 at 16:03 DATE OF DISCHARGE: 09/10/2020 DISCHARGE DIAGNOSES: 1. . Schizoaffective disorder 2. . REASON FOR ADMISSION: 40-year-old male with a long psychiatric history admitted due to increasing depression, feeling overwhelmed and stressed and having suicidal thoughts over cutting his wrist. 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 He has been compliant with his outpatient treatment and denies any substance abuse issues, but was feeling very unsafe due to his mood. He denied any hallucination or paranoid. CONSULTANTS INVOLVED: TREATMENT AND PROGRESS ON THE UNIT : Patient was continued on his medication of Latuda and Klonopin, but his Prozac was increased to 30 mg daily and risperidone was increased to 3 mg at bedtime. He was seen for supportive therapy and education and continued on his medication for his diabetes and hypertension. He is fully cooperated with medicine tolerated without any side effects and reported gradual but significant improvement.. HOSPITAL COURSE: Patient maintained good control, showed marked reduction in his anxiety and preoccupation about his new job and reported that he is not feeling as anxious or overwhelmed and feeling more confident and positive. He is denying any suicidal thoughts and his behavior has been in good control and he is now appears more relaxed, spontaneous, pleasant and animated. He has no complaint of side effect and is feeling positive to return to his job and willing to follow- up with his outpatient treatment. DISCHARGE ASSESSMENT: Much improved and stable MENTAL STATUS EXAMINATION ON DISCHARGE: Patient is a 40-year old male, who is , pleasant and cooperative. Speech is rational, coherent . Language skills are , good. Thought processes including: Relevant. Thought content: Denies any suicidal thoughts. Abstract reasoning, and computation: Fair,. Description of associations: , Organized. Description of abnormal or psychotic thoughts: Denies any hallucination or paranoia. Judgment: fair. Insight: good. Orientation to , well oriented. Recent and remote memory: Unimpaired. Attention span and concentration: fair. Language: . Fund of knowledge: . Mood: Euthymia. Affect: Appropriate . MEDICATIONS ON DISCHARGE: - for ., Prozac 30 mg daily for 7 days with 3 refills - for . Risperidone 3 mg at bedtime for 7 days with 3 refills - for . PLAN/FOLLOWUP ARRANGEMENTS: To continue with his current outpatient treatment. The amount of time spent in the coordination of care for this patient was approximately 30 for minutes. ETOH/Disorder Med Rx ETOH/DRUG DISORDER RX: N/A Vital Signs/I&Os Vital Signs Date Time Temp Pulse Resp B/P (MAP) Pulse Ox O2 Delivery O2 Flow Rate FiO2 09/10/20 08:10 Room Air 09/10/20 06:45 98.4 72 20 111/57 (75) 96 Medications Scheduled Cholecalciferol (Vitamin D3) (Vitamin D3) 125 Mcg Capsule, 5,000 UNITS PO DAILY, (Reported) Clonazepam (Clonazepam) 1 Mg Tablet, 1 MG PO BID, (Reported) Ertugliflozin Pidolate (Steglatro) 5 Mg Tablet, 5 MG PO DAILY, (Reported) Fluoxetine Hcl (Fluoxetine HCl) 10 Mg Capsule, 30 MG PO DAILY for depression for 7 Days, #21 Lisinopril/Hydrochlorothiazide (Lisinopril-Hctz 20-12.5 mg Tab) 1 Each Tablet, 1 TAB PO QHS, (Reported) Lurasidone Hydrochloride (Latuda) 40 Mg Tablet, 40 MG PO DAILY, (Reported) Metformin HCl (Metformin HCl ER) 750 Mg Tab, 750 MG PO BID, (Reported) Multivitamins (Thera M Plus Tablet) 1 Each Tablet, 1 TAB PO DAILY, (Reported) Oxcarbazepine (Oxcarbazepine) 300 Mg Tablet, 600 MG PO BID, (Reported) Risperidone (Risperidone) 3 Mg Tablet, 3 MG PO QHS for mood for 7 Days, #7 Rosuvastatin Calcium (Rosuvastatin Calcium) 10 Mg Tablet, 10 MG PO DAILY, (Reported) Allergies Coded Allergies: Sulfa (Sulfonamide Antibiotics) (Verified Allergy, Intermediate, HIVES, 09/03/20) PLACIDO MAHMOOD M.D. Sep 10, 2020 08:50
== END 2020-09-10 10:32 | disposition home or self-care (01) | DRG 750 ==
LOC: M ED 08:01 → M ED INP 16:03 → M PSY 20:15
PROVIDERS: ADMIT Psychiatry & Neurology Psychiatry; ATTEND Psychiatry & Neurology Psychiatry
DX: F25.9 Schizoaffective disorder, unspecified (principal); E11.9 Type 2 diabetes mellitus without complications; I10 Essential (primary) hypertension; E78.00 Pure hypercholesterolemia, unspecified; R45.851 Suicidal ideations; Z56.1 Change of job; Z56.6 Other physical and mental strain related to work; Z20.822 Contact with and (suspected) exposure to COVID-19; Z79.899 Other long term (current) drug therapy; Z79.84 Long term (current) use of oral hypoglycemic drugs; Z88.2 Allergy status to sulfonamides; E55.9 Vitamin D deficiency, unspecified

== ENCOUNTER → 2022-09-02 | Outpatient (CLI) | payer BC ==
[~2022-09-02] MED LIST changes: +CHOL50002 PO; +CLON1TAB8 PO; +FLUO10CA18 PO; +LATU40TA2 PO; -LATU80TA; +LATU80TA2; +LISI20TA35 PO; +OXCA300T14 PO; +RISP-10 PO; +RISP-8 PO; +RISP-9 PO; +ROSU10TA6 PO; +STEG5TAB PO; +VITMTA PO
[2022-09-02 09:51] LABS: BASO # 0.1 10^3/uL (0.0-0.2); BASO % 1.3 % (0.0-1.0); EOS # 0.2 10^3/uL (0.0-0.5); EOS % 2.5 % (0.0-3.0); HEMATOCRIT 43.7 % (42.0-52.0); HEMOGLOBIN 15.2 g/dl (13.5-17.5); LYMPH # 1.4 10^3/uL (1.5-5.0); LYMPH % 18.6 % (24.0-44.0); MEAN CORPUSCULAR HEMOGLOBIN 29.5 pg (27.0-33.0); MEAN CORPUSCULAR HGB CONC 34.8 g/dl (32.0-36.5); MEAN CORPUSCULAR VOLUME 84.9 fl (80.0-96.0); MONO # 0.6 10^3/uL (0.0-0.8); MONO % 7.3 % (2.0-8.0); NEUTROPHILS # 5.4 10^3/uL (1.5-8.5); NEUTROPHILS % 69.8 % (36.0-66.0); PLATELET COUNT, AUTOMATED 232 10^3/uL (150-450); RED BLOOD COUNT 5.15 10^6/uL (4.30-6.10); WHITE BLOOD COUNT 7.7 10^3/uL (4.0-10.0)
[2022-09-02 11:08] LABS: HEMOGLOBIN A1c 7.5 % (4.0-6.0)
[2022-09-02 11:49] LABS: ALBUMIN 4.3 G/DL (3.2-5.2); ALKALINE PHOSPHATASE 80 U/L (46-116); ALT/SGPT 29 U/L (7.0-40); AST/SGOT 23 U/L (<34); BILIRUBIN,TOTAL 0.6 MG/DL (0.3-1.2); BLOOD UREA NITROGEN 17 MG/DL (9-23); CALCIUM LEVEL 9.1 MG/DL (8.5-10.1); CARBON DIOXIDE LEVEL 27 MMOL/L (20-31); CHLORIDE LEVEL 97 MMOL/L (98-107); CHOLESTEROL LEVEL 198 MG/DL (<200); CHOLESTEROL RISK RATIO 5.25 (<5); CREATININE FOR GFR 0.71 MG/DL (0.70-1.30); GLOMERULAR FILTRATION RATE > 60.0 (>60); GLUCOSE, FASTING 183 MG/DL (60-100); HDL CHOLESTEROL 37.7 MG/DL (>40); LDL CHOLESTEROL 89.3 MG/DL (<100); NON-HDL-C 160.3 MG/DL; POTASSIUM SERUM 4.1 MMOL/L (3.5-5.1); SODIUM LEVEL 131 MMOL/L (136-145); TOTAL PROTEIN 6.5 G/DL (5.7-8.2); TRIGLYCERIDES LEVEL 355 MG/DL (<150)
[2022-09-02 11:51] LABS: PROLACTIN 10.64 NG/ML (2.1-17.7)
== END ==
LOC: M LAB 09:04
PROVIDERS: ATTEND Physician Assistant
DX: Z79.899 Other long term (current) drug therapy (principal)

== ENCOUNTER → 2022-09-02 | Outpatient (CLI) | payer BC ==
[2022-09-02 11:09] LABS: HEMOGLOBIN A1c 7.4 % (4.0-6.0)
[2022-09-02 11:41] LABS: ALBUMIN 4.1 G/DL (3.2-5.2); ALKALINE PHOSPHATASE 85 U/L (46-116); ALT/SGPT 39 U/L (7.0-40); AST/SGOT 17 U/L (<34); BILIRUBIN,TOTAL 0.7 MG/DL (0.3-1.2); BLOOD UREA NITROGEN 17 MG/DL (9-23); CALCIUM LEVEL 9.9 MG/DL (8.5-10.1); CARBON DIOXIDE LEVEL 25 MMOL/L (20-31); CHLORIDE LEVEL 97 MMOL/L (98-107); CHOLESTEROL LEVEL 199 MG/DL (<200); CHOLESTEROL RISK RATIO 5.71 (<5); CREATININE FOR GFR 0.73 MG/DL (0.70-1.30); GLOMERULAR FILTRATION RATE > 60.0 (>60); GLUCOSE, FASTING 179 MG/DL (60-100); HDL CHOLESTEROL 34.8 MG/DL (>40); NON-HDL-C 164.2 MG/DL; SODIUM LEVEL 130 MMOL/L (136-145); TOTAL PROTEIN 6.6 G/DL (5.7-8.2); TRIGLYCERIDES LEVEL 351 MG/DL (<150)
[2022-09-02 13:30] LABS: MAU/CREAT RATIO 45.7 MCG/MG (0.0-30.0)
== END ==
LOC: M LAB 09:02
PROVIDERS: ATTEND Nurse Practitioner Family
DX: E78.49 Other hyperlipidemia (principal)

== ENCOUNTER → 2023-04-14 | Outpatient (CLI) | payer BC ==
[~2023-04-14] MED LIST changes: +RISP-105 PO; -RISP-8 PO
[2023-04-14 08:21] LABS: HEMOGLOBIN A1c 7.4 % (4.0-6.0)
[2023-04-14 08:27] LABS: ALBUMIN 3.9 G/DL (3.2-5.2); ALKALINE PHOSPHATASE 86 U/L (46-116); ALT/SGPT 44 U/L (7.0-40); AST/SGOT 17 U/L (<34); BILIRUBIN,TOTAL 0.3 MG/DL (0.3-1.2); BLOOD UREA NITROGEN 11 MG/DL (9-23); CARBON DIOXIDE LEVEL 28 MMOL/L (20-31); CHLORIDE LEVEL 99 MMOL/L (98-107); CHOLESTEROL LEVEL 167 MG/DL (<200); CHOLESTEROL RISK RATIO 3.84 (<5); CREATININE FOR GFR 0.73 MG/DL (0.70-1.30); GLOMERULAR FILTRATION RATE > 60.0 (>60); GLUCOSE, FASTING 202 MG/DL (60-100); HDL CHOLESTEROL 43.4 MG/DL (>40); NON-HDL-C 123.6 MG/DL; POTASSIUM SERUM 4.4 MMOL/L (3.5-5.1); SODIUM LEVEL 134 MMOL/L (136-145); TOTAL PROTEIN 6.4 G/DL (5.7-8.2); TRIGLYCERIDES LEVEL 163 MG/DL (<150)
[2023-04-14 08:40] LABS: CREATININE, URINE 30.2 MG/DL
== END ==
LOC: M LAB 07:19
PROVIDERS: ATTEND Nurse Practitioner Family
DX: E78.49 Other hyperlipidemia (principal)

== ENCOUNTER 2023-08-25 09:10 | Emergency (ER) | payer MEDICAID ==
[~2023-08-25] VITALS: Ht 165.1 cm; Wt 112.7 kg
[~2023-08-25 09:10] MED LIST changes: +FLUO-290 PO; +FLUO-365 PO; -FLUO10CA18 PO; -FLUO20CA22 PO; -RISP-10 PO; +RISP-106; +RISP-106 PO; -RISP-9; -RISP-9 PO; +RISP3TAB77 PO; -ROSU10TA6 PO; +ROSU10TA61 PO
[2023-08-25] MEDS ORDERED: SENO8.6T5 PO (09:33)
[2023-08-25] MEDS ORDERED: ALOE170G TOP (09:33)
[2023-08-25] MEDS ORDERED: DIPH-435 PO (09:33)
[2023-08-25] MEDS ORDERED: FLUO40CA PO (09:33)
[2023-08-25] MEDS ORDERED: CALC260T PO (09:33)
[2023-08-25] MEDS ORDERED: TRAZ-252 PO (09:33)
[2023-08-25] MEDS ORDERED: ACET32TAB PO (09:33)
[2023-08-25] MEDS ORDERED: HYDR1TAB33 PO (09:33)
[2023-08-25] MEDS ORDERED: LISI10TA22 PO (09:33)
[2023-08-25] MEDS ORDERED: FAMO20TA PO (09:33)
[2023-08-25] MEDS ORDERED: DOCU100C16 PO (09:33)
[2023-08-25] MEDS ORDERED: IBUP200C25 PO (09:33)
[2023-08-25] MEDS ORDERED: MILKSUS3 PO (09:33)
[2023-08-25] MEDS ORDERED: JARD1TAB3 PO (09:33)
[2023-08-25] MEDS ORDERED: PROP10TA56 PO (09:33)
[2023-08-25] MEDS ORDERED: LOPE1CAP5 PO (09:33)
[2023-08-25 11:08] LABS: BLOOD UREA NITROGEN 11 MG/DL (9-23); CALCIUM LEVEL 10.3 MG/DL (8.5-10.1); CARBON DIOXIDE LEVEL 28 MMOL/L (20-31); CHLORIDE LEVEL 100 MMOL/L (98-107); GLOMERULAR FILTRATION RATE > 60.0 (>60); GLUCOSE, FASTING 177 MG/DL (60-100); POTASSIUM SERUM 4.3 MMOL/L (3.5-5.1); SODIUM LEVEL 136 MMOL/L (136-145)
[2023-08-25 11:28] VITALS: BP 147/82; TEMP 97.8; O2SAT 96
== END 2023-08-25 11:38 | disposition home or self-care (01) ==
LOC: M ED 09:10
DX: I10 Essential (primary) hypertension (principal); Z79.899 Other long term (current) drug therapy; Z88.2 Allergy status to sulfonamides

== ENCOUNTER 2023-08-29 00:43 | Emergency (ER) | payer MEDICAID, OTHER, SELFPAY ==
[~2023-08-29] VITALS: Ht 165.1 cm; Wt 114.4 kg
[2023-08-29 00:43] VITALS: TEMP 96.6
[~2023-08-29 00:43] MED LIST changes: +ACET32TAB PO; +ALOE170G TOP; +CALC260T PO; +DIPH-435 PO; +DOCU100C16 PO; +FAMO20TA PO; +FLUO40CA PO; +HYDR1TAB33 PO; +IBUP200C25 PO; +JARD1TAB3 PO; +LISI10TA22 PO; +LOPE1CAP5 PO; +MILKSUS3 PO; +PROP10TA56 PO; +SENO8.6T5 PO; +TRAZ-252 PO
[2023-08-29] MEDS: ONDANSETRON 4MG 2ML VIAL IV ONE (01:30)
[2023-08-29] MEDS: ACETAMINOPHEN 500 MG TAB PO ONE (01:30)
[2023-08-29 01:45] LABS: BASO # 0.1 10^3/uL (0.0-0.2); BASO % 0.9 % (0.0-1.0); EOS # 0.3 10^3/uL (0.0-0.5); EOS % 3.1 % (0.0-3.0); HEMATOCRIT 39.8 % (42.0-52.0); HEMOGLOBIN 14.6 g/dl (13.5-17.5); LYMPH # 1.7 10^3/uL (1.5-5.0); LYMPH % 18.1 % (24.0-44.0); MEAN CORPUSCULAR HEMOGLOBIN 29.6 pg (27.0-33.0); MEAN CORPUSCULAR VOLUME 80.6 fl (80.0-96.0); MONO # 0.9 10^3/uL (0.0-0.8); MONO % 9.5 % (2.0-8.0); NEUTROPHILS # 6.2 10^3/uL (1.5-8.5); NEUTROPHILS % 67.6 % (36.0-66.0); PLATELET COUNT, AUTOMATED 255 10^3/uL (150-450); RED BLOOD COUNT 4.94 10^6/uL (4.30-6.10); WHITE BLOOD COUNT 9.2 10^3/uL (4.0-10.0)
[2023-08-29 01:54] LABS: MEAN CORPUSCULAR HGB CONC 36.7 g/dl (32.0-36.5)
[2023-08-29] MEDS: hydrALAZINE 20MG/ML 1ML VIAL IV PRN (02:00)
[2023-08-29 02:02] LABS: LIPASE 37 U/L (12-53)
[2023-08-29 02:12] LABS: ALBUMIN 4.2 G/DL (3.2-5.2); ALKALINE PHOSPHATASE 83 U/L (46-116); ALT/SGPT 32 U/L (7.0-40); AST/SGOT 19 U/L (<34); BILIRUBIN,DIRECT 0.2 MG/DL (<0.4); BILIRUBIN,TOTAL 0.8 MG/DL (0.3-1.2); BLOOD UREA NITROGEN 8 MG/DL (9-23); CALCIUM LEVEL 8.7 MG/DL (8.5-10.1); CARBON DIOXIDE LEVEL 28 MMOL/L (20-31); CHLORIDE LEVEL 89 MMOL/L (98-107); CK-MB VALUE MASS < 1.0 NG/ML (<3.6); CPK CREATINE PHOSPHOKINASE 143 U/L (46-171); CREATININE FOR GFR 0.71 MG/DL (0.70-1.30); FREE T4 1.16 NG/DL (0.89-1.76); GLOMERULAR FILTRATION RATE > 60.0 (>60); GLUCOSE, FASTING 137 MG/DL (60-100); MB/CK RELATIVE INDEX 0.69 (< OR =4); POTASSIUM SERUM 3.7 MMOL/L (3.5-5.1); SODIUM LEVEL 123 MMOL/L (136-145); THYROID STIMULATING HORMONE 4.386 uIU/ML (0.55-4.78); TOTAL PROTEIN 6.3 G/DL (5.7-8.2)
[2023-08-29 03:15] VITALS: BP 176/84; O2SAT 98
== END 2023-08-29 03:43 | disposition home or self-care (01) ==
LOC: M ED 00:43
DX: I16.0 Hypertensive urgency (principal); R00.1 Bradycardia, unspecified; E11.9 Type 2 diabetes mellitus without complications; E78.5 Hyperlipidemia, unspecified; F41.9 Anxiety disorder, unspecified; Z79.899 Other long term (current) drug therapy; Z88.2 Allergy status to sulfonamides
CPT/HCPCS: 36415; 70450; 80048; 80076; 82550; 82553; 83690; 84439; 84443; 84484; 85025; 93005; 93041; 94760; 96374; 99284; J2405

== ENCOUNTER → 2023-10-12 | Outpatient (CLI) | payer MEDICAID, OTHER ==
[2023-10-12 08:31] LABS: BASO % 0.5 % (0.0-1.0); EOS # 0.3 10^3/uL (0.0-0.5); EOS % 3.9 % (0.0-3.0); HEMATOCRIT 41.7 % (42.0-52.0); HEMOGLOBIN 14.9 g/dl (13.5-17.5); LYMPH # 1.2 10^3/uL (1.5-5.0); LYMPH % 15.1 % (24.0-44.0); MEAN CORPUSCULAR HEMOGLOBIN 29.3 pg (27.0-33.0); MEAN CORPUSCULAR HGB CONC 35.7 g/dl (32.0-36.5); MEAN CORPUSCULAR VOLUME 81.9 fl (80.0-96.0); MONO % 12.5 % (2.0-8.0); NEUTROPHILS # 5.4 10^3/uL (1.5-8.5); NEUTROPHILS % 67.6 % (36.0-66.0); PLATELET COUNT, AUTOMATED 260 10^3/uL (150-450); RED BLOOD COUNT 5.09 10^6/uL (4.30-6.10)
[2023-10-12 08:59] LABS: ALBUMIN 4.5 G/DL (3.2-5.2); ALKALINE PHOSPHATASE 91 U/L (46-116); ALT/SGPT 36 U/L (7.0-40); AST/SGOT 31 U/L (<34); BILIRUBIN,TOTAL 0.9 MG/DL (0.3-1.2); BLOOD UREA NITROGEN 7 MG/DL (9-23); CALCIUM LEVEL 9.4 MG/DL (8.5-10.1); CARBON DIOXIDE LEVEL 26 MMOL/L (20-31); CHLORIDE LEVEL 89 MMOL/L (98-107); CREATININE FOR GFR 0.73 MG/DL (0.70-1.30); GLOMERULAR FILTRATION RATE > 60.0 (>60); GLUCOSE, FASTING 92 MG/DL (60-100); MAGNESIUM LEVEL 1.8 MG/DL (1.8-2.4); POTASSIUM SERUM 4.6 MMOL/L (3.5-5.1); SODIUM LEVEL 123 MMOL/L (136-145); TOTAL PROTEIN 7.1 G/DL (5.7-8.2)
[2023-10-12 09:01] LABS: TOTAL 25(OH) VITAMIN D 71.7 NG/ML (20.0-100.0)
[2023-10-12 09:02] LABS: PROLACTIN 10.02 NG/ML (2.1-17.7)
[2023-10-12 09:04] LABS: FOLATE > 24.00 NG/ML (>5.4)
[2023-10-12 09:47] LABS: HEMOGLOBIN A1c 6.1 % (4.0-6.0)
== END ==
LOC: M LAB 07:49
PROVIDERS: ATTEND Nurse Practitioner Psychiatric/Mental Health
DX: F29 Unspecified psychosis not due to a substance or known physiological condition (principal)

== ENCOUNTER → 2023-11-19 | Outpatient (CLI) | payer OTHER | LOC: M LAB 06:14 | PROVIDERS: ATTEND Nurse Practitioner | DX: E11.9 Type 2 diabetes mellitus without complications (principal) ==

== ENCOUNTER → 2024-04-15 | Outpatient (CLI) | payer BC | LOC: M LAB 09:46 | PROVIDERS: ATTEND Nurse Practitioner | DX: E11.9 Type 2 diabetes mellitus without complications (principal) ==

== ENCOUNTER → 2024-09-14 | Outpatient (REF) | LOC: M EMP 09:28 | PROVIDERS: ATTEND Family Medicine | DX: Z11.52 Encounter for screening for COVID-19 (principal) ==

== ENCOUNTER → 2024-10-23 | Outpatient (CLI) | payer BC ==
[~2024-10-23] MED LIST changes: +SENN-225 PO; -SENO8.6T5 PO
[2024-10-23 10:09] LABS: PLATELET COUNT, AUTOMATED 266 10^3/uL (150-450)
[2024-10-23 11:00] LABS: ALT/SGPT 29 U/L (7.0-40); AST/SGOT 22 U/L (<34); CALCIUM LEVEL 9.2 MG/DL (8.5-10.1); CARBON DIOXIDE LEVEL 27 MMOL/L (20-31); CHLORIDE LEVEL 92 MMOL/L (98-107); CHOLESTEROL LEVEL 122 MG/DL (<200); CHOLESTEROL RISK RATIO 2.47 (<5); CREATININE FOR GFR 0.78 MG/DL (0.70-1.30); GLOMERULAR FILTRATION RATE > 90.0 (>60); LDL CHOLESTEROL 56.2 MG/DL (<100); NON-HDL-C 72.8 MG/DL; POTASSIUM SERUM 4.5 MMOL/L (3.5-5.1); SODIUM LEVEL 130 MMOL/L (136-145); TRIGLYCERIDES LEVEL 83 MG/DL (<150)
== END ==
LOC: M LAB 09:11
PROVIDERS: ATTEND Student in an Organized Health Care Education/Training Program
DX: E11.9 Type 2 diabetes mellitus without complications (principal)

== ENCOUNTER → 2024-11-18 | Outpatient (CLI) | payer BC ==
[2024-11-18 11:39] LABS: CALCIUM LEVEL 9.7 MG/DL (8.5-10.1); CARBON DIOXIDE LEVEL 28 MMOL/L (20-31); CHLORIDE LEVEL 96 MMOL/L (98-107); CREATININE FOR GFR 0.78 MG/DL (0.70-1.30); GLOMERULAR FILTRATION RATE > 90.0 (>60); POTASSIUM SERUM 4.7 MMOL/L (3.5-5.1); SODIUM LEVEL 128 MMOL/L (136-145)
== END ==
LOC: M LAB 08:29
PROVIDERS: ATTEND Student in an Organized Health Care Education/Training Program
DX: I10 Essential (primary) hypertension (principal)

== ENCOUNTER → 2024-12-28 | Outpatient (CLI) | payer BC ==
[~2024-12-28] MED LIST changes: -ROSU10TA61 PO; +ROSU10TA90 PO
[2024-12-28 11:12] LABS: SODIUM,RANDOM URINE 16 MMOL/L
== END ==
LOC: M LAB 09:46
PROVIDERS: ATTEND Student in an Organized Health Care Education/Training Program
DX: E87.1 Hypo-osmolality and hyponatremia (principal)